=== PATIENT | female | born 1980 | race Caucasian/White ===

== ENCOUNTER 2019-11-01 16:15 | Emergency (ER) | payer OTHER, SELFPAY ==
--- NOTE | ~2019-11-01 | CT_ITS ---
EXAMINATION: CT abdomen pelvis wo con DATE: 11/01/2019 18:44 INDICATION: Left flank pain TECHNIQUE: Computed tomography (CT) of the abdomen and pelvis was performed without intravenous contr ast. The dose-length product (DLP) was 1419.87 mGy-cm. Automated exposure control and iterative recon struction technique were employed. COMPARISON: None FINDINGS: Minimal dependent atelectasis is present in the lung bases. The heart size is normal. Calci fied nodules of the lingula are consistent with old granulomatous disease. The liver is diffusely low in attenuation when compared with the spleen, consistent with hepatic steatosis. The spleen, pancrea s, gallbladder, and adrenal glands are normal. The kidneys are unremarkable. No stones are identified in the kidneys, ureters, or bladder. There is no hydronephrosis or hydroureter. No pathologically en larged abdominal or pelvic lymph nodes are identified. There is no free intraperitoneal gas or eviden ce of bowel obstruction. The appendix is normal. IMPRESSION: 1. No CT correlate for the patient's symptoms. 2. Diffuse hepatic steatosis. Reviewed, dictated and finalized at location A.
--- NOTE | ~2019-11-01 | XR_ITS ---
EXAMINATION: XR abdomen/kub 1V INDICATION: Left-sided flank pain TECHNIQUE: Supine views of the abdomen were obtained on 2 radiographs. COMPARISON: None FINDINGS: The bowel gas pattern is normal. There are no dilated loops of bowel. No abnormal calcifica tions are identified. The lung bases are clear. IMPRESSION: 1. No radiographic correlate for the patient's symptoms. Reviewed, dictated and finalized at location A.
[2019-11-01 16:22] VITALS: BP 136/85; PULSE 120; RESP 18; TEMP 36.3; O2SAT 97
[2019-11-01 16:57] LABS: Basophils Absolute Auto 0.1 K/mm3 (0.0-0.1); Basophils Percent Auto 0.6 % (0.2-1.2); Eosinophils Absolute Auto 0.1 K/mm3 (0-0.3); Eosinophils Percent Auto 0.9 % (0-4.4); Hematocrit 46.4 % (37.0-47.0); Immature Granulocyte Absolute 0.04 K/mm3 (0.00-0.031); Immature Granulocyte Percent A 0.4 % (0-0.5); Lymphocytes Percent Auto 16.2 % (18.3-44.2); Mean Corpuscular HGB Conc 32.3 g/dl (32-36); Mean Corpuscular Hemoglobin 27.4 pg (26-34); Mean Corpuscular Volume 84.8 fl (80-100); Mean Platelet Volume 11.4 fl (7.4-10.4); Monocytes Absolute Auto 0.6 K/mm3 (0.1-0.6); Monocytes Percent Auto 5.2 % (2.6-8.5); Neutrophils Percent Auto 76.7 % (45.5-73.1); Platelet Count Result 255 k/mm3 (150-375); Red Blood Count 5.47 M/mm3 (4.2-5.4); Red Cell Distribution Width 14.1 % (11.5-14.5); White Blood Count 10.5 K/mm3 (4.5-10.0)
[2019-11-01 17:09] LABS: Blood Urea Nitrogen 15 mg/dL (7-17); Carbon Dioxide 26 mmol/L (22-30); Chloride 101 mmol/L (98-107); Estimated CRCL calculation 113 ml/min; Estimated Glomerular Filt Rate > 60; Glucose 110 mg/dL (65-105); Potassium 4.1 mmol/L (3.4-5.0); Sodium 135 mmol/L (137-145)
--- NOTE | 2019-11-01 17:23 | ED.ABDPAIN ---
HPI - Abdominal Pain General Chief Complaint: Abdominal Pain <KALEIGH Oliveira Last Filed: 11/01/19 19:46> Stated Complaint: ?kidney stone <KALEIGH Oliveira Last Filed: 11/01/19 19:46> Time Seen by Provider: 11/01/19 16:35 <KALEIGH Oliveira Last Filed: 11/01/19 19:46> Source: patient <KALEIGH Oliveira Last Filed: 11/01/19 19:46> Mode of arrival: ambulatory <KALEIGH Oliveira Last Filed: 11/01/19 19:46> Limitations: no limitations <KALEIGH Oliveira Last Filed: 11/01/19 19:46> History of Present Illness HPI narrative: Patient is a 39-year-old female who presents to emergency department for evaluation of low back pain and flank pain noting that the discomfort has been present now for the last several days called in some Bactrim with no improvement had some burning with urination and emesis 1 day over the weekend which resolved he has continued to have intermittent pain that radiates into the groin. Patient with history of urolithiasis. Patient denies vaginal complaints or current urinary complaints or any change in bowel habits. <KALEIGH Oliveira Last Filed: 11/01/19 19:46> Related Data Home Medications: Home Medications Medication Instructions Recorded Confirmed levothyroxine 11/01/19 11/01/19 lisdexamfetamine [Vyvanse] mg 11/01/19 sulfamethoxazole-trimethoprim 11/01/19 <KALEIGH Oliveira Last Filed: 11/01/19 19:46> Allergies/Adverse Reactions: Allergies Allergy/AdvReac Type Severity Reaction Status Date / Time ciprofloxacin [From Cipro] Allergy Swelling Verified 11/01/19 16:36 of Lip/Tongue/Throat <KALEIGH Oliveira Last Filed: 11/01/19 19:46> Review of Systems Review of Systems: All systems reviewed & are unremarkable except as noted in HPI and below <KALEIGH Oliveira Last Filed: 11/01/19 19:46> PMFSH Surgical History Surgical History: Surgical History Previous section <Nicholas Chaney PA-C - Last Filed: 11/01/19 19:46> Social History Social History: Social History Smoking status: Never smoker Gender identity (if verbalized by the patient): Female <Nicholas Chaney PA-C - Last Filed: 11/01/19 19:46> Exam Narrative: Exam Narrative: GENERAL: Well-appearing, well-nourished, and in no acute distress. HEAD: Normocephalic, atraumatic. EYES: PERRLA and EOMI. ENT: Nares clear, no rhinorrhea or epistaxis. Mucous membranes moist. CHEST: Clear to auscultation. No respiratory distress. No wheezes rales or rhonchi HEART: Regular rate and rhythm. No murmur heard. Normal peripheral pulses. ABDOMEN: Soft, nontender, distended EXTREMITIES: Normal range of motion. No edema. SKIN: Warm, dry, no rash. NEURO: No focal deficits. Alert and oriented x3. PSYCH: Normal mood and affect. <Nicholas Chaney PA-C - Last Filed: 11/01/19 19:46> Course Course Emergency Course: Patient in the room in no distress aware of case findings treatment plan and diagnosis <Nicholas Chaney PA-C - Last Filed: 11/01/19 19:46> Vital Signs Vital signs: Vital Signs Temperature 97.3 F L 11/01/19 16:22 Pulse Rate 120 H 11/01/19 16:22 Respiratory Rate 18 11/01/19 16:22 Blood Pressure 136/85 11/01/19 16:22 Pulse Oximetry 97 11/01/19 16:22 Temperature 97.3 F L 11/01/19 16:22 Pulse Rate 120 H 11/01/19 16:22 Respiratory Rate 18 11/01/19 16:22 Blood Pressure 136/85 11/01/19 16:22 Pulse Oximetry 97 11/01/19 16:22 <Nicholas Chaney PA-C - Last Filed: 11/01/19 19:46> Vital Signs Temperature 97.3 F L 11/01/19 16:22 Pulse Rate 120 H 11/01/19 16:22 Respiratory Rate 18 11/01/19 16:22 Blood Pressure 136/85 11/01/19 16:22 Pulse Oximetry 97 11/01/19 16:22 Temperature 97.3 F L 11/01/19
[2019-11-01] MEDS: FAMOTIDINE 20 MG/2 ML VIAL IV PUSH (17:24)
[2019-11-01] MEDS: SODIUM CHLORIDE 0.9% IV 1,000 ML 999 ML IV CONT (17:24)
[2019-11-01] MEDS: ONDANSETRON INJ 4 MG/2 ML VIAL (17:26)
[2019-11-01 18:07] LABS: Add Urine Microscopic? YES; Appearance Urine Clear (Clear); Bilirubin Urine Negative (Negative); Blood Urine Negative (Negative); Color Urine Yellow (Yellow); Glucose Urine UA Negative (Negative); Ketones Urine Trace mg/dL (Negative); Leukocyte Esterase Ur Negative LEU/UL (Negative); Mucus Urine Few /lpf; Nitrate Urine Negative (Negative); Protein Urine Negative (Negative); Specific Grav Ur 1.024 (1.001-1.035); Squamous Epithelial Cell Urine Occasional /hpf (Few); Urobilinogen Urine Negative mg/dL (<2.0); WBC Urine 0-3 /hpf
== END 2019-11-01 19:43 | disposition home or self-care (01) ==
PROVIDERS: Emergency Medicine Emergency Medical Services; Emergency Provider General Practice; PCP Obstetrics & Gynecology
DX: R10.9 Unspecified abdominal pain (principal); K76.0 Fatty (change of) liver, not elsewhere classified
CPT/HCPCS: 36415; 74018; 74176; 80048; 81001; 81025; 85025; 96365; 96366; 96375; 99284; J0131; J2405; J7030